=== PATIENT | female | born 1960 | race Caucasian/White ===

== ENCOUNTER 2016-11-05 08:20 | Emergency (ER) | payer MEDICAID ==
--- NOTE | 2016-11-06 07:46 | ER ---
Date of Service: 11/05/2016 SUBJECTIVE: Eunice presents to the emergency room with complaints of chronic back pain. The patient states that she has a history of chronic low back pain and does have a history of degenerative disk disease. She is normally on Ultram 50 mg and normally takes 1 every 4-6 hours as needed for pain. She is currently out of her medication and cannot get in to the clinic to see her primary for the next 2 days. The patient denies any new trauma. No new symptoms. She again states that she is out of her medications and is requesting a refill. PAST MEDICAL HISTORY: Chronic low back pain. MEDICATIONS: 1. Tramadol 50 mg q.4-6 hours. 2. Wellbutrin. 3. Clonazepam. ALLERGIES: Cipro and shellfish. REVIEW OF SYSTEMS: General: Denies any fever or chills. Denies any saddle anesthesia. No paresthesia to her lower extremities. PHYSICAL EXAMINATION: General: This is a 55-year-old female patient, in no acute distress. Skin: Warm, pink, and dry. Musculoskeletal: She does have some point tenderness and muscle spasm to her paraspinal muscles. No gross bony deformity noted to her lumbar spine. Her straight leg raise is negative bilaterally. Patellar reflexes are 2+. ASSESSMENT: Acute on chronic low back pain. PLAN: The patient was given a total of 10 tramadol and was instructed to follow up with her primary care provider if she requires more. Return to the emergency room if she develops any saddle anesthesia, urinary or fecal incontinence, or other worrisome signs or symptoms. All questions were answered. MWK: 11/05/2016 18:25:53 MODL: 11/05/2016 20:45:15 /[id number]
== END 2016-11-05 09:00 | disposition home or self-care (01) ==
LOC: VM.ED 08:20
CPT/HCPCS: 99283

== ENCOUNTER 2017-12-16 06:20 | Emergency (ER) | payer MEDICAID ==
[2017-12-16 06:35] VITALS: BP 131/80
--- NOTE | 2017-12-16 07:22 | EDM.PDOC ---
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 Patient state the pain starts in the lower left back and radiated down to the left ankle. Patient is s/p laminectomy from 6 weeks ago. She states she has been doing very well since the surgery. The surgery was uneventful. Patient states the pain is worse when she sit down. She has tried heat, ice, and advil, but stop taking the advil as it bothers her stomach. Otherwise, no other symptoms. Onset Date: 12/15/17 left low back Pain Score (Numeric/FACES): 9 - Related Data Allergies Allergy/AdvReac Type Severity Reaction Status Date / Time ciprofloxacin [From Cipro] Allergy Vomiting Verified 12/16/17 06:35 shellfish derived Allergy Anaphylactic Verified 12/16/17 06:35 Shock Home Meds: Home Meds ClonazePAM [KlonoPIN] 1 mg PO BID PRN 10/25/16 [History] buPROPion [Wellbutrin] 1 tab PO BID 10/25/16 [History] Hydrocodone/Acetaminophen [Hydrocodon-Acetaminophen 5-325] 1 tab PO Q6HR PRN #5 tablet 12/16/17 [Rx] Past Medical History - Past Health History Medical/Surgical History: Denies Medical/Surgical History Musculoskeletal History: Reports: Back Pain, Chronic Psychiatric History: Reports: Anxiety - Past Surgical History GI Surgical History: Reports: Appendectomy, Cholecystectomy Musculoskeletal Surgical History: Reports: Other (See Below) Other Musculoskeletal Surgeries/Procedures:: Back surgery, double laminectomy 6 weeks ago. Social & Family History - Tobacco Use Smoking Status *Q: Current Every Day Smoker Years of Tobacco use: 15 Packs/Tins Daily: 0.5 - Recreational Drug Use Recreational Drug Use: No ED ROS GENERAL - Review of Systems Review Of Systems: See Below Constitutional: Denies: Fever, Chills, Weakness Respiratory: Denies: Shortness of Breath, Cough Cardiovascular: Denies: Chest Pain, Palpitations GI/Abdominal: Denies: Abdominal Pain, Nausea, Stool Incontinence, Vomiting : Denies: Incontinence Musculoskeletal: Reports: Back Pain, Muscle Pain, Muscle Stiffness Skin: Reports: No Symptoms Neurological: Denies: Numbness, Paresthesia, Tingling ED EXAM,LOWER BACK PAIN/INJURY - Physical Exam Exam: See Below Exam Limited By: No Limitations General Appearance: Alert, No Apparent Distress Respiratory/Chest: No Respiratory Distress, Lungs Clear, Normal Breath Sounds Cardiovascular: Normal Peripheral Pulses, Regular Rate, Rhythm GI/Abdominal: Normal Bowel Sounds, Soft, Non-Tender Back Exam: Muscle Spasm, Paraspinal Tenderness Neurological: Alert, Oriented x 3 Skin Exam: Warm, Dry, Intact, Normal Color Course - Vital Signs Last Recorded V/S: Last Vital Signs Temp 36.1 C 12/16/17 06:20 Pulse 100 12/16/17 06:20 Resp 18 12/16/17 06:20 BP 131/80 12/16/17 06:20 Pulse Ox - Orders/Labs/Meds Orders: Active Orders 24 hr Category Date Time Status Lumbar Spine 2 or 3V [CR] Stat Exams 12/16/17 06:54 Taken Orphenadrine [Norflex] Med 12/16/17 07:00 Active 60 mg IM Q12H Medication Orders Orphenadrine Citrate (Norflex) 60 mg IM Q12H [facility] Last Admin: 12/16/17 07:05 Dose: 60 mg Meds: Medications Generic Name Dose Route Start Last Admin Trade Name Freq PRN Reason Stop Dose Admin Orphenadrine Citrate 60 mg 12/16/17 07:00 12/16/17 07:05 Norflex IM 60 mg Q12H [facility] Administration - Radiology Interpretation Free Text/Narrative:: Lumbar Spine 2-3V: Mild lower lumbar degenerative disc disease See scanned document in EMR Departure - Departure Time of Disposition: 08:02 Disposition: Home, Self-Care 01 Clinical Impression: Acute exacerbation of chronic low back pain - Discharge Information Prescriptions: Hydrocodone/Acetaminophen [Hydrocodon-Acetaminophen 5-325] 1 tab PO Q6HR PRN #5 tablet PRN Reason: Pain (Severe 7-10) Instructions: What You Need to Know About Chronic Back Pain, Back Pain, Adult, [id number], Tramadol tablets Referrals: Heidi Salas PA-C [Primary Care Provider] - Forms: ED Department Discharge Additional Instructions: 1. Stay well hydrated and rest 2. Take pain medication sparingly, this can make you drowsy 3. May alternate Tylenol/Advil as needed 4. Use warm packs to back 5. See your Primary tomorrow in clinic - Problem List Review Problem List Initiated/Reviewed/Updated: Yes - My Orders Last 24 Hours: My Active Orders 12/16/17 06:54 Lumbar Spine 2 or 3V [CR] Stat 12/16/17 07:00 Orphenadrine [Norflex] 60 mg IM Q12H - Assessment/Plan Last 24 Hours: My Active Orders 12/16/17 06:54 Lumbar Spine 2 or 3V [CR] Stat 12/16/17 07:00 Orphenadrine [Norflex] 60 mg IM Q12H Assessment:: Acute on Chronic left lower back pain
== END 2017-12-16 08:30 | disposition home or self-care (01) ==
LOC: VM.ED 06:20
DX: M54.5 Low back pain (principal); G89.29 Other chronic pain; F17.210 Nicotine dependence, cigarettes, uncomplicated; Z88.1 Allergy status to other antibiotic agents; Z91.013 Allergy to seafood
CPT/HCPCS: 72100; 96372; 99283; J2360

== ENCOUNTER 2018-02-15 22:01 | Observation (INO) | payer MEDICAID ==
[2018-02-15] MEDS ORDERED: Sodium Chloride 0.9% 1,000 ML IV ONE (22:53)
[2018-02-15 23:42] LABS: CHLORIDE,CL 101 mmol/L (98-107); SODIUM,NA 136 mmol/L (136-145)
[2018-02-15 23:44] LABS: ANION GAP 10.8 mmol/L (10-20)
[2018-02-16] MEDS ORDERED: cloNIDine 0.1 MG Tab PO ONE
[2018-02-16] MEDS ORDERED: cefTRIAXone 2 GM Vial IVPUSH ONE
[2018-02-16] MEDS ORDERED: Sodium Chloride 0.9% 1,000 ML IV ONE (01:08)
--- NOTE | 2018-02-16 01:45 | EDM.PDOC ---
ED HPI GENERAL MEDICAL PROBLEM - General Chief Complaint: General Stated Complaint: ? seizure Time Seen by Provider: 02/15/18 22:21 Source of Information: Reports: Patient, EMS, Family History Limitations: Reports: No Limitations - History of Present Illness INITIAL COMMENTS - FREE TEXT/NARRATIVE: Pt. presents to ER via EMS. Pt. was watching TV with her significant other when she had what appeared to be a grand mal seizure lasting approx. 2 min. Boyfriend states that pt. was rigid with shaking of all 4 extremities. Pt. was apparently somnolent consistent with postictal state for several minutes after the even. She was not incontinent. No oral trauma reported. Pt. has no recollection of the event, and offered no complaints before the even of after. She is currently 4 months post op following a failed laminectomy and is being seen by neurosurgery for possible spinal fusion. She states that she has chronic back pain and is taking tramadol. She denies any fever, chills, or neck pain. Denies any nausea or vomiting. Location: Reports: Generalized Associated Symptoms: Reports: Seizure Back Pain Score (Numeric/FACES): 8 - Related Data Allergies Allergy/AdvReac Type Severity Reaction Status Date / Time shellfish derived Allergy Severe Anaphylactic Verified 02/15/18 22:02 Shock ciprofloxacin [From Cipro] AdvReac Vomiting Verified 02/15/18 22:02 Home Meds: Home Meds buPROPion [Wellbutrin] 1 tab PO BID 10/25/16 [History] Hydrocodone/Acetaminophen [Hydrocodon-Acetaminophen 5-325] 1 tab PO Q6HR PRN #5 tablet 12/16/17 [Rx] Past Medical History - Past Health History Medical/Surgical History: Denies Medical/Surgical History [employer] History: Reports: Ectopic Musculoskeletal History: Reports: Back Pain, Chronic Psychiatric History: Reports: Anxiety, Depression - Infectious Disease History Infectious Disease History: Reports: Chicken Pox - Past Surgical History Head Surgeries/Procedures: Reports: None GI Surgical History: Reports: Appendectomy, Cholecystectomy Female Surgical History: Reports: Oophorectomy Neurological Surgical History: Reports: Discectomy, Laminectomy Other Neurological Surgeries/Procedures: Double laminectomy November 2017 Social & Family History - Family History Cardiac: Reports: [place] Neurological: Reports: Dementia, Neuropathy, Diabetic Psychiatric: Reports: ADHD Endocrine/Metabolic: Reports: Diabetes, type II Hematologic: Reports: Anemia Oncologic: Reports: Skin - Tobacco Use Smoking Status *Q: Current Every Day Smoker Years of Tobacco use: 20 Packs/Tins Daily: 0.2 Tobacco Use Comment: Patient has access to quitline. Does not want more information today. ED ROS GENERAL - Review of Systems Review Of Systems: See Below Constitutional: Reports: No Symptoms. Denies: Fever, Chills, Malaise, Weakness , Fatigue, Diaphoresis, Decreased Appetite, Weight Loss HEENT: Reports: No Symptoms Respiratory: Reports: No Symptoms Cardiovascular: Reports: No Symptoms Endocrine: Reports: No Symptoms GI/Abdominal: Reports: No Symptoms : Reports: No Symptoms Musculoskeletal: Reports: No Symptoms Skin: Reports: No Symptoms Neurological: Reports: Confusion (during postictal period), Seizure Psychiatric: Reports: No Symptoms Hematologic/Lymphatic: Reports: No Symptoms Immunologic: Reports: No Symptoms ED EXAM, GENERAL - Physical Exam Exam: See Below Exam Limited By: No Limitations General Appearance: Alert, WD/WN, No Apparent Distress Eye Exam: Bilateral Eye: EOMI, Normal Fundi, Normal Inspection, PERRL Ears: Normal External Exam, Normal Canal, Hearing Grossly Normal, Normal TMs Ear Exam: Bilateral Ear: Auricle Normal, Canal Normal, TM normal Nose: Normal Inspection, Normal Mucosa, No Blood Throat/Mouth: Normal Inspection, Normal Lips, Normal Teeth, Normal Gums, Normal Oropharynx, Normal Voice, No Airway Compromise Head: Atraumatic, Normocephalic Neck: Normal Inspection, Supple, Non-Tender, Full Range of Motion Respiratory/Chest: No Respiratory Distress, Lungs Clear, Normal Breath Sounds, No Accessory Muscle Use, Chest Non-Tender Cardiovascular: Normal Peripheral Pulses, Regular Rate, Rhythm, No Edema, No Gallop, No JVD, No Murmur, No Rub Peripheral Pulses: 4+: Radial (L), Radial (R) GI/Abdominal: Normal Bowel Sounds, Soft, Non-Tender, No Organomegaly, No Distention, No Abnormal Bruit, No Mass (Female) Exam: Deferred Rectal (Female) Exam: Deferred Back Exam: Normal Inspection, Full Range of Motion, NT Extremities: Normal Inspection, Normal Range of Motion, Non-Tender, Normal Capillary Refill, No Pedal Edema Neurological: Alert, Oriented, CN II-XII Intact, Normal Cognition, Confused, Disoriented (initially somewhat confused and slow to respond which improved over time.) Psychiatric: Normal Affect, Normal Mood Skin Exam: Warm, Dry, Intact, Normal Color, No Rash Lymphatic: No Adenopathy EKG INTERPRETATION Rhythm: NSR Stout: Normal P-Wave: Present QRS: Normal ST-T: Normal QT: Normal Course - Vital Signs Last Recorded V/S: Last Vital Signs Temp 36.4 C 02/16/18 00:44 Pulse 88 02/16/18 00:44 Resp 17 02/16/18 00:44 BP 131/99 H 02/16/18 00:44 Pulse Ox 97 02/16/18 00:44 - Orders/Labs/Meds Orders: Active Orders 24 hr Category Date Time Status Patient Status [ADT] Routine ADT 02/15/18 23:56 Active EKG Documentation Completion [RC] STAT Care 02/15/18 22:38 Inactive Head wo Cont [CT] Stat Exams 02/15/18 22:34 Taken CULTURE BLOOD [BC] Stat Lab 02/15/18 23:00 Received CULTURE BLOOD [BC] Stat Lab 02/15/18 23:00 Received DRUG SCREEN, URINE [URCHEM] Stat Lab 02/15/18 23:15 Ordered Blood Culture x2 Reflex Set [OM.PC] Stat Oth 02/15/18 22:37 Ordered Medication Orders Sodium Chloride (Normal Saline) 1,000 mls @ 125 mls/hr IV ONETIME ONE Stop: 02/16/18 09:07 Labs: Laboratory Tests 02/15/18 02/15/18 02/15/18 Range/Units 23:00 23:00 23:00 WBC 7.4 (4.0-10.0) x10^3/uL RBC 4.40 (4.00-5.50) x10^6/uL Hgb 13.5 (12.0-16.0) g/dL Hct 40.8 (33.0-47.0) % MCV 92.7 (78.0-93.0) fL MCH 30.7 (26.0-32.0) pg MCHC 33.1 (32.0-36.0) g/dL RDW Coeff of Felisha 13.4 (10.0-15.0) % Plt Count 161 (130-400) x10^3/uL Neut % (Auto) 67.2 (50.0-80.0) % Lymph % (Auto) 19.1 L (25.0-50.0) % [place] % (Auto) 11.1 H (2.0-11.0) % Eos % (Auto) 2.3 (0.0-4.0) % Baso % (Auto) 0.3 (0.2-1.2) % PT 9.7 (9.6-11.4) SEC INR 0.9 L (2.0-3.5) Sodium 136 (136-145) mmol/L Potassium 3.8 (3.5-5.1) mmol/L Chloride 101 (98-107) mmol/L Carbon Dioxide 28 (21-32) mmol/L Anion Gap 10.8 (10-20) mmol/L BUN 20 H (7-18) mg/dL Creatinine 0.9 (0.55-1.02) mg/dL Est Cr Clr Drug Dosing TNP Estimated GFR (MDRD) > 60 Glucose 106 (74-106) mg/dL Lactic Acid (0.4-2.0) mmol/L Calcium 8.9 (8.5-10.1) mg/dL Corrected Calcium 9.46 (8.5-10.1) mg/dL Phosphorus 3.0 (2.6-4.7) mg/dL Magnesium 2.0 (1.8-2.4) mg/dL Total Bilirubin 0.3 (0.2-1.0) mg/dL AST 24 (15-37) U/L ALT 26 (14-59) U/L Alkaline Phosphatase 88 (46-116) U/L Troponin I < 0.017 (<=0.056) ng/mL C-Reactive Protein 1.8 H (<=0.9) mg/dL Total Protein 6.5 (6.4-8.2) g/dL Albumin 3.3 L (3.4-5.0) g/dL Globulin 3.2 Albumin/Globulin Ratio 1.03 Urine Color (YELLOW) Urine Appearance (CLEAR) Urine pH (5.0-8.0) Ur Specific [place] Urine Protein (NEGATIVE) mg/dL Urine Glucose (UA) (NEGATIVE) mg/dL Urine Ketones (NEGATIVE) mg/dL Urine Occult Blood (NEGATIVE) Urine Nitrite (NEGATIVE) Urine Bilirubin (NEGATIVE) Urine Urobilinogen (0.2) EU/dL Ur Leukocyte Esterase (NEGATIVE) Urine RBC (NOT SEEN) /HPF Urine WBC (NOT SEEN) /HPF Ur Squamous Epith Cells (NEGATIVE) /HPF Urine Bacteria (NEGATIVE) /HPF Urine Mucus (NEGATIVE) /LPF Urine Opiates Screen (NEGATIVE) Ur Buprenorphine Scrn (NEGATIVE) Ur Oxycodone Screen (NEGATIVE) Urine Methadone Screen (NEGATIVE) Ur Barbiturates Screen (NEGATIVE) Ur Tricyclics Screen (NEGATIVE) Ur Amphetamine Screen (NEGATIVE) U Methamphetamines Scrn (NEGATIVE) Urine MDMA Screen (NEGATIVE) U Benzodiazepines Scrn (NEGATIVE) U Cocaine Metab Screen (NEGATIVE) U Marijuana (THC) Screen (NEGATIVE) Ethyl Alcohol < 3 (0-3) mg/dL 02/15/18 02/15/18 02/15/18 Range/Units 23:00 23:15 23:15 WBC (4.0-10.0) x10^3/uL RBC (4.00-5.50) x10^6/uL Hgb (12.0-16.0) g/dL Hct (33.0-47.0) % MCV (78.0-93.0) fL MCH (26.0-32.0) pg MCHC (32.0-36.0) g/dL RDW Coeff of Felisha (10.0-15.0) % Plt Count (130-400) x10^3/uL Neut % (Auto) (50.0-80.0) % Lymph % (Auto) (25.0-50.0) % [place] % (Auto) (2.0-11.0) % Eos % (Auto) (0.0-4.0) % Baso % (Auto) (0.2-1.2) % PT (9.6-11.4) SEC INR (2.0-3.5) Sodium (136-145) mmol/L Potassium (3.5-5.1) mmol/L Chloride (98-107) mmol/L Carbon Dioxide (21-32) mmol/L Anion Gap (10-20) mmol/L BUN (7-18) mg/dL Creatinine (0.55-1.02) mg/dL Est Cr Clr Drug Dosing Estimated GFR (MDRD) Glucose (74-106) mg/dL Lactic Acid 1.5 (0.4-2.0) mmol/L Calcium (8.5-10.1) mg/dL Corrected Calcium (8.5-10.1) mg/dL Phosphorus (2.6-4.7) mg/dL Magnesium (1.8-2.4) mg/dL Total Bilirubin (0.2-1.0) mg/dL AST (15-37) U/L ALT (14-59) U/L Alkaline Phosphatase (46-116) U/L Troponin I (<=0.056) ng/mL C-Reactive Protein (<=0.9) mg/dL Total Protein (6.4-8.2) g/dL Albumin (3.4-5.0) g/dL Globulin Albumin/Globulin Ratio Urine Color Dark yellow H (YELLOW) Urine Appearance Turbid H (CLEAR) Urine pH 7.0 (5.0-8.0) Ur Specific [place] 1.025 Urine Protein Negative (NEGATIVE) mg/dL Urine Glucose (UA) Negative (NEGATIVE) mg/dL Urine Ketones Negative (NEGATIVE) mg/dL Urine Occult Blood Trace-intact H (NEGATIVE) Urine Nitrite Positive H (NEGATIVE) Urine Bilirubin Negative (NEGATIVE) Urine Urobilinogen 0.2 (0.2) EU/dL Ur Leukocyte Esterase Trace H (NEGATIVE) Urine RBC 0-5 (NOT SEEN) /HPF Urine WBC 5-10 H (NOT SEEN) /HPF Ur Squamous Epith Cells Moderate H (NEGATIVE) /HPF Urine Bacteria Many H (NEGATIVE) /HPF Urine Mucus Moderate H (NEGATIVE) /LPF Urine Opiates Screen Negative (NEGATIVE) Ur Buprenorphine Scrn Negative (NEGATIVE) Ur Oxycodone Screen Negative (NEGATIVE) Urine Methadone Screen Negative (NEGATIVE) Ur Barbiturates Screen Negative (NEGATIVE) Ur Tricyclics Screen Negative (NEGATIVE) Ur Amphetamine Screen Negative (NEGATIVE) U Methamphetamines Scrn Negative (NEGATIVE) Urine MDMA Screen Negative (NEGATIVE) U Benzodiazepines Scrn Negative (NEGATIVE) U Cocaine Metab Screen Negative (NEGATIVE) U Marijuana (THC) Screen Negative (NEGATIVE) Ethyl Alcohol (0-3) mg/dL Meds: Medications Generic Name Dose Route Start Last Admin Trade Name Freq PRN Reason Stop Dose Admin Sodium Chloride 1,000 mls @ 125 mls/hr 02/16/18 01:08 Normal Saline IV 02/16/18 09:07 ONETIME ONE Discontinued Medications Generic Name Dose Route Start Last Admin Trade Name Lauryn PRN Reason Stop Dose Admin Ceftriaxone Sodium 2 gm 02/16/18 00:00 02/16/18 00:12 Rocephin IVPUSH 02/16/18 00:01 2 gm STAT ONE Administration Clonidine HCl 0.1 mg 02/16/18 00:00 02/16/18 00:12 Catapres PO 02/16/18 00:01 0.1 mg ONETIME ONE Administration Sodium Chloride 1,000 mls @ 1,000 mls/hr 02/15/18 22:53 02/15/18 23:09 Normal Saline IV 02/15/18 23:52 1,000 mls/hr .BOLUS ONE Administration - Radiology Interpretation Free Text/Narrative:: CT brain is negative for acute pathology - Re-Assessments/Exams Free Text/Narrative Re-Assessment/Exam: Pt. was given 1 liter of NS in ER. Heart rate decreased from approx. 130 to 90 range. She continued to by hypertensive. She was given clonidine 0.1mg PO. She was given rocephin IV for her UTI. Departure - Departure Time of Disposition: 00:40 Disposition: Refer to Observation Clinical Impression: Seizures, UTI (urinary tract infection), Hypertension, Dehydration - Discharge Information - My Orders Last 24 Hours: My Active Orders 02/15/18 22:34 Head wo Cont [CT] Stat 02/15/18 22:37 Blood Culture x2 Reflex Set [OM.PC] Stat 02/15/18 22:38 EKG Documentation Completion [RC] STAT 02/15/18 23:00 CULTURE BLOOD [BC] Stat CULTURE BLOOD [BC] Stat 02/15/18 23:15 DRUG SCREEN, URINE [URCHEM] Stat 02/15/18 23:56 Patient Status [ADT] Routine - Assessment/Plan Last 24 Hours: My Active Orders 02/15/18 22:34 Head wo Cont [CT] Stat 02/15/18 22:37 Blood Culture x2 Reflex Set [OM.PC] Stat 02/15/18 22:38 EKG Documentation Completion [RC] STAT 02/15/18 23:00 CULTURE BLOOD [BC] Stat CULTURE BLOOD [BC] Stat 02/15/18 23:15 DRUG SCREEN, URINE [URCHEM] Stat 02/15/18 23:56 Patient Status [ADT] Routine Plan: Admit observation. Code status: 1. Will continue normal saline at 125ml/hr. Rocephin 1gm QD. seizure precautions. Will set pt. of for MRI and EEG tomorrow. She was not given any seizure medication at this time, as it was a solitary event.
[2018-02-16 08:04] LABS: CHLORIDE,CL 107 mmol/L (98-107); SODIUM,NA 140 mmol/L (136-145)
[2018-02-16 08:05] LABS: ANION GAP 10.9 mmol/L (10-20)
[2018-02-16 10:49] VITALS: BP 127/78
--- NOTE | 2018-02-16 11:14 | PCM.DCSUM1 ---
Discharge Summary - Hospital Course Free Text/Narrative:: Pt. was admitted observation for new onset seizure activity, dehydration, and UTI. She did will overnight and exhibited no other signs of seizure activity. She was stable overnight. her blood pressure was treated with a single dose of clonidine 0.1mg and has improved. She offers no complaints at time of discharge. She will undergo an MRI later this morning and is set to see KARMEN Felipe this afternoon. I did discuss the patient with her. She is working on referrals for an EEG and to see neurology. Diagnosis: Stroke: No Modified [place] Scale: No Symptoms at All Modified [place] Scale Score: 0 - Discharge Data Discharge Date: 02/16/18 Discharge Disposition: Home, Self-Care 01 Condition: Good - Discharge Diagnosis/Problem(s) (1) Seizures SNOMED Code(s): 95728616 ICD Code: R56.9 - UNSPECIFIED CONVULSIONS Status: Acute Current Visit: Yes (2) UTI (urinary tract infection) SNOMED Code(s): 49249094 ICD Code: N39.0 - URINARY TRACT INFECTION, SITE NOT SPECIFIED Status: Acute Current Visit: Yes Qualifiers: Urinary tract infection type: acute cystitis - Discharge Plan Home Medications: Home Meds buPROPion [Wellbutrin] 1 tab PO BID 10/25/16 [History] Hydrocodone/Acetaminophen [Hydrocodon-Acetaminophen 5-325] 1 tab PO Q6HR PRN #5 tablet 12/16/17 [Rx] Forms: ED Department Discharge Referrals: Heidi Salas PA-C [Primary Care Provider] - 02/19/18 2:00 pm (You have a follow up appt. with Heidi Salas on February 19, 2018 at 2:00) - General Info Functional Status: Reports: Pain Controlled - Review of Systems General: Reports: No Symptoms HEENT: Reports: No Symptoms Pulmonary: Reports: No Symptoms Cardiovascular: Reports: No Symptoms Gastrointestinal: Reports: No Symptoms Genitourinary: Reports: No Symptoms Musculoskeletal: Reports: No Symptoms Skin: Reports: No Symptoms Neurological: Reports: No Symptoms Psychiatric: Reports: No Symptoms - Patient Data Vitals - Most Recent: Last Vital Signs Temp 36.9 C 02/16/18 10:00 Pulse 80 02/16/18 10:00 Resp 16 02/16/18 10:00 BP 127/78 02/16/18 10:00 Pulse Ox 98 02/16/18 10:00 Weight - Most Recent: 57.266 kg I&O - Last 24 hours: Intake & Output 02/15/18 02/16/18 02/16/18 22:59 06:59 14:59 Intake Total 647 870 Output Total 500 600 Balance 147 270 Lab Results - Last 24 hrs: Laboratory Results - last 24 hr 02/15/18 02/15/18 02/15/18 Range/Units 23:00 23:00 23:00 WBC 7.4 (4.0-10.0) x10^3/uL RBC 4.40 (4.00-5.50) x10^6/uL Hgb 13.5 (12.0-16.0) g/dL Hct 40.8 (33.0-47.0) % MCV 92.7 (78.0-93.0) fL MCH 30.7 (26.0-32.0) pg MCHC 33.1 (32.0-36.0) g/dL RDW Coeff of Felisha 13.4 (10.0-15.0) % Plt Count 161 (130-400) x10^3/uL Neut % (Auto) 67.2 (50.0-80.0) % Lymph % (Auto) 19.1 L (25.0-50.0) % [place] % (Auto) 11.1 H (2.0-11.0) % Eos % (Auto) 2.3 (0.0-4.0) % Baso % (Auto) 0.3 (0.2-1.2) % PT 9.7 (9.6-11.4) SEC INR 0.9 L (2.0-3.5) Sodium 136 (136-145) mmol/L Potassium 3.8 (3.5-5.1) mmol/L Chloride 101 (98-107) mmol/L Carbon Dioxide 28 (21-32) mmol/L Anion Gap 10.8 (10-20) mmol/L BUN 20 H (7-18) mg/dL Creatinine 0.9 (0.55-1.02) mg/dL Est Cr Clr Drug Dosing TNP Estimated GFR (MDRD) > 60 Glucose 106 (74-106) mg/dL Lactic Acid (0.4-2.0) mmol/L Calcium 8.9 (8.5-10.1) mg/dL Corrected Calcium 9.46 (8.5-10.1) mg/dL Phosphorus 3.0 (2.6-4.7) mg/dL Magnesium 2.0 (1.8-2.4) mg/dL Total Bilirubin 0.3 (0.2-1.0) mg/dL AST 24 (15-37) U/L ALT 26 (14-59) U/L Alkaline Phosphatase 88 (46-116) U/L Troponin I < 0.017 (<=0.056) ng/mL C-Reactive Protein 1.8 H (<=0.9) mg/dL Total Protein 6.5 (6.4-8.2) g/dL Albumin 3.3 L (3.4-5.0) g/dL Globulin 3.2 Albumin/Globulin Ratio 1.03 Urine Color (YELLOW) Urine Appearance (CLEAR) Urine pH (5.0-8.0) Ur Specific [place] Urine Protein (NEGATIVE) mg/dL Urine Glucose (UA) (NEGATIVE) mg/dL Urine Ketones (NEGATIVE) mg/dL Urine Occult Blood (NEGATIVE) Urine Nitrite (NEGATIVE) Urine Bilirubin (NEGATIVE) Urine Urobilinogen (0.2) EU/dL Ur Leukocyte Esterase (NEGATIVE) Urine RBC (NOT SEEN) /HPF Urine WBC (NOT SEEN) /HPF Ur Squamous Epith Cells (NEGATIVE) /HPF Urine Bacteria (NEGATIVE) /HPF Urine Mucus (NEGATIVE) /LPF Urine Opiates Screen (NEGATIVE) Ur Buprenorphine Scrn (NEGATIVE) Ur Oxycodone Screen (NEGATIVE) Urine Methadone Screen (NEGATIVE) Ur Barbiturates Screen (NEGATIVE) Ur Tricyclics Screen (NEGATIVE) Ur Amphetamine Screen (NEGATIVE) U Methamphetamines Scrn (NEGATIVE) Urine MDMA Screen (NEGATIVE) U Benzodiazepines Scrn (NEGATIVE) U Cocaine Metab Screen (NEGATIVE) U Marijuana (THC) Screen (NEGATIVE) Ethyl Alcohol < 3 (0-3) mg/dL 02/15/18 02/15/18 02/15/18 Range/Units 23:00 23:15 23:15 WBC (4.0-10.0) x10^3/uL RBC (4.00-5.50) x10^6/uL Hgb (12.0-16.0) g/dL Hct (33.0-47.0) % MCV (78.0-93.0) fL MCH (26.0-32.0) pg MCHC (32.0-36.0) g/dL RDW Coeff of Felisha (10.0-15.0) % Plt Count (130-400) x10^3/uL Neut % (Auto) (50.0-80.0) % Lymph % (Auto) (25.0-50.0) % [place] % (Auto) (2.0-11.0) % Eos % (Auto) (0.0-4.0) % Baso % (Auto) (0.2-1.2) % PT (9.6-11.4) SEC INR (2.0-3.5) Sodium (136-145) mmol/L Potassium (3.5-5.1) mmol/L Chloride (98-107) mmol/L Carbon Dioxide (21-32) mmol/L Anion Gap (10-20) mmol/L BUN (7-18) mg/dL Creatinine (0.55-1.02) mg/dL Est Cr Clr Drug Dosing Estimated GFR (MDRD) Glucose (74-106) mg/dL Lactic Acid 1.5 (0.4-2.0) mmol/L Calcium (8.5-10.1) mg/dL Corrected Calcium (8.5-10.1) mg/dL Phosphorus (2.6-4.7) mg/dL Magnesium (1.8-2.4) mg/dL Total Bilirubin (0.2-1.0) mg/dL AST (15-37) U/L ALT (14-59) U/L Alkaline Phosphatase (46-116) U/L Troponin I (<=0.056) ng/mL C-Reactive Protein (<=0.9) mg/dL Total Protein (6.4-8.2) g/dL Albumin (3.4-5.0) g/dL Globulin Albumin/Globulin Ratio Urine Color Dark yellow H (YELLOW) Urine Appearance Turbid H (CLEAR) Urine pH 7.0 (5.0-8.0) Ur Specific [place] 1.025 Urine Protein Negative (NEGATIVE) mg/dL Urine Glucose (UA) Negative (NEGATIVE) mg/dL Urine Ketones Negative (NEGATIVE) mg/dL Urine Occult Blood Trace-intact H (NEGATIVE) Urine Nitrite Positive H (NEGATIVE) Urine Bilirubin Negative (NEGATIVE) Urine Urobilinogen 0.2 (0.2) EU/dL Ur Leukocyte Esterase Trace H (NEGATIVE) Urine RBC 0-5 (NOT SEEN) /HPF Urine WBC 5-10 H (NOT SEEN) /HPF Ur Squamous Epith Cells Moderate H (NEGATIVE) /HPF Urine Bacteria Many H (NEGATIVE) /HPF Urine Mucus Moderate H (NEGATIVE) /LPF Urine Opiates Screen Negative (NEGATIVE) Ur Buprenorphine Scrn Negative (NEGATIVE) Ur Oxycodone Screen Negative (NEGATIVE) Urine Methadone Screen Negative (NEGATIVE) Ur Barbiturates Screen Negative (NEGATIVE) Ur Tricyclics Screen Negative (NEGATIVE) Ur Amphetamine Screen Negative (NEGATIVE) U Methamphetamines Scrn Negative (NEGATIVE) Urine MDMA Screen Negative (NEGATIVE) U Benzodiazepines Scrn Negative (NEGATIVE) U Cocaine Metab Screen Negative (NEGATIVE) U Marijuana (THC) Screen Negative (NEGATIVE) Ethyl Alcohol (0-3) mg/dL 02/16/18 02/16/18 02/16/18 Range/Units 07:11 07:11 07:11 WBC 5.0 (4.0-10.0) x10^3/uL RBC 3.82 L (4.00-5.50) x10^6/uL Hgb 11.5 L D (12.0-16.0) g/dL Hct 36.0 (33.0-47.0) % MCV 94.2 H (78.0-93.0) fL MCH 30.1 (26.0-32.0) pg MCHC 31.9 L (32.0-36.0) g/dL RDW Coeff of Felisha 13.5 (10.0-15.0) % Plt Count 136 (130-400) x10^3/uL Neut % (Auto) 63.5 (50.0-80.0) % Lymph % (Auto) 23.5 L (25.0-50.0) % [place] % (Auto) 10.6 (2.0-11.0) % Eos % (Auto) 2.2 (0.0-4.0) % Baso % (Auto) 0.2 (0.2-1.2) % PT (9.6-11.4) SEC INR (2.0-3.5) Sodium 140 (136-145) mmol/L Potassium 3.9 (3.5-5.1) mmol/L Chloride 107 (98-107) mmol/L Carbon Dioxide 26 (21-32) mmol/L Anion Gap 10.9 (10-20) mmol/L BUN 13 (7-18) mg/dL Creatinine 0.7 (0.55-1.02) mg/dL Est Cr Clr Drug Dosing 71.82 Estimated GFR (MDRD) > 60 Glucose 84 (74-106) mg/dL Lactic Acid 0.6 (0.4-2.0) mmol/L Calcium 7.9 L (8.5-10.1) mg/dL Corrected Calcium 8.86 (8.5-10.1) mg/dL Phosphorus (2.6-4.7) mg/dL Magnesium (1.8-2.4) mg/dL Total Bilirubin 0.3 (0.2-1.0) mg/dL AST 23 (15-37) U/L ALT 20 (14-59) U/L Alkaline Phosphatase 72 (46-116) U/L Troponin I < 0.017 (<=0.056) ng/mL C-Reactive Protein (<=0.9) mg/dL Total Protein 5.6 L (6.4-8.2) g/dL Albumin 2.8 L (3.4-5.0) g/dL Globulin 2.8 Albumin/Globulin Ratio 1.00 Urine Color (YELLOW) Urine Appearance (CLEAR) Urine pH (5.0-8.0) Ur Specific [place] Urine Protein (NEGATIVE) mg/dL Urine Glucose (UA) (NEGATIVE) mg/dL Urine Ketones (NEGATIVE) mg/dL Urine Occult Blood (NEGATIVE) Urine Nitrite (NEGATIVE) Urine Bilirubin (NEGATIVE) Urine Urobilinogen (0.2) EU/dL Ur Leukocyte Esterase (NEGATIVE) Urine RBC (NOT SEEN) /HPF Urine WBC (NOT SEEN) /HPF Ur Squamous Epith Cells (NEGATIVE) /HPF Urine Bacteria (NEGATIVE) /HPF Urine Mucus (NEGATIVE) /LPF Urine Opiates Screen (NEGATIVE) Ur Buprenorphine Scrn (NEGATIVE) Ur Oxycodone Screen (NEGATIVE) Urine Methadone Screen (NEGATIVE) Ur Barbiturates Screen (NEGATIVE) Ur Tricyclics Screen (NEGATIVE) Ur Amphetamine Screen (NEGATIVE) U Methamphetamines Scrn (NEGATIVE) Urine MDMA Screen (NEGATIVE) U Benzodiazepines Scrn (NEGATIVE) U Cocaine Metab Screen (NEGATIVE) U Marijuana (THC) Screen (NEGATIVE) Ethyl Alcohol (0-3) mg/dL Med Orders - Current: Current Medications Ceftriaxone Sodium (Rocephin) 1 gm IVPUSH DAILY@1999 BRODIE Discontinued Medications Ceftriaxone Sodium (Rocephin) 2 gm IVPUSH STAT ONE Stop: 02/16/18 00:01 Last Admin: 02/16/18 00:12 Dose: 2 gm Clonidine HCl (Catapres) 0.1 mg PO ONETIME ONE Stop: 02/16/18 00:01 Last Admin: 02/16/18 00:12 Dose: 0.1 mg Sodium Chloride (Normal Saline) 1,000 mls @ 1,000 mls/hr IV .BOLUS ONE Stop: 02/15/18 23:52 Last Admin: 02/15/18 23:09 Dose: 1,000 mls/hr Sodium Chloride (Normal Saline) 1,000 mls @ 125 mls/hr IV ONETIME ONE Stop: 02/16/18 09:07 Last Admin: 02/16/18 01:53 Dose: 125 mls/hr - Exam General: Reports: Alert, Oriented HEENT: Reports: Pupils Equal, Pupils Reactive, EOMI, Mucous Membr. Moist/[place]: Reports: Supple Lungs: Reports: Clear to Auscultation, Normal Respiratory Effort Cardiovascular: Reports: Regular Rate, Regular Rhythm GI/Abdominal Exam: Normal Bowel Sounds, Soft, Non-Tender, No Organomegaly, No Distention, No Abnormal Bruit, No Mass, Pelvis Stable (Female) Exam: Deferred Rectal (Female) Exam: Deferred Back Exam: Reports: Normal Inspection, Full Range of Motion Extremities: Normal Inspection, Normal Range of Motion, Non-Tender, No Pedal Edema, Normal Capillary Refill Skin: Reports: Warm, Dry, Intact Wound/Incisions: Reports: Healing Well Neurological: Reports: No New Focal Deficit Psy/Mental Status: Reports: Alert, Normal Affect, Normal Mood
[2018-02-16] MEDS ORDERED: cefTRIAXone 1 GM Vial IVPUSH SCH (20:00)
== END 2018-02-16 12:30 | disposition home or self-care (01) ==
LOC: VM.ED 22:01 → VM.MS 02-16 00:02
PROVIDERS: ADMIT Physician Assistant; ATTEND Physician Assistant
DX: R56.9 Unspecified convulsions (principal); N30.00 Acute cystitis without hematuria; E86.0 Dehydration; E11.40 Type 2 diabetes mellitus with diabetic neuropathy, unspecified; I10 Essential (primary) hypertension; F17.200 Nicotine dependence, unspecified, uncomplicated; F41.9 Anxiety disorder, unspecified; F32.9 Major depressive disorder, single episode, unspecified; Z88.1 Allergy status to other antibiotic agents; Z91.013 Allergy to seafood
CPT/HCPCS: 36415; 70450; 80053; 80305; 81001; 83605; 83735; 84100; 84484; 85025; 85610; 86140; 87040; 93005; 96361; 96374; 99285; G0480; J0696; J7030; A9270-GY

== ENCOUNTER 2019-03-29 22:10 | Emergency (ER) | payer MEDICAID ==
--- NOTE | 2019-03-29 22:57 | EDM.PDOCBH ---
ED HPI GENERAL MEDICAL PROBLEM - General Chief Complaint: Behavioral/Psych Stated Complaint: Possible Overdose Time Seen by Provider: 03/29/19 22:10 Source of Information: Reports: Patient, EMS Notes Reviewed, Old Records, Police , RN, RN Notes Reviewed History Limitations: Reports: No Limitations - History of Present Illness INITIAL COMMENTS - FREE TEXT/NARRATIVE: Patient is brought to the ED via EMS for attempted suicide. EMS was called to patients residence by the patient. Patient stated to EMS crew "I want to kill myself." Patient brought to the ED for further evaluation. According to EMS crew, patient may have had a witnessed seizure enroute. Patient was not given any medications. Upon arrival, patient was verbal and conversive. She did states she took Lexapro and Wellbutrin "because I want to kill myself." Patient has a long standing history of psychiatric disorders. 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 Patient appears to be a poor historian as she refuses to answer questions. Patient denies any pain upon arrival. 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 - Related Data Allergies Allergy/AdvReac Type Severity Reaction Status Date / Time shellfish derived Allergy Severe Anaphylactic Verified 03/30/19 00:16 Shock ciprofloxacin [From Cipro] AdvReac Vomiting Verified 03/30/19 00:16 Home Meds: Home Meds Naproxen 500 mg PO BID 06/03/18 [History] Triamcinolone Acetonide [Kenalog 0.1% Crm] 1 applic TOP BID 06/03/18 [History] atoMOXetine HCl [Strattera] 25 mg PO QAM 06/03/18 [History] tiZANidine HCl [Tizanidine HCl] 2 mg PO TID 06/03/18 [History] traMADol [Ultram] 50 mg PO TID PRN 30 Days #90 tablet 06/03/18 [Rx] Gabapentin [Neurontin] 200 mg PO TID 30 Days #180 capsule 06/10/18 [Rx] Past Medical History - Past Health History Medical/Surgical History: Denies Medical/Surgical History 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 Musculoskeletal History: Reports: Back Pain, Chronic Neurological History: Reports: Seizure Psychiatric History: Reports: Anxiety, Depression - Infectious Disease History Infectious Disease History: Reports: Chicken Pox - Past Surgical History Head Surgeries/Procedures: Reports: None HEENT Surgical History: Reports: Oral Surgery, Other (See Below) Other HEENT Surgeries/Procedures: jaw sx Cardiovascular Surgical History: Reports: None GI Surgical History: Reports: Appendectomy, Cholecystectomy Female Surgical History: Reports: Oophorectomy Neurological Surgical History: Reports: Discectomy, Laminectomy Other Neurological Surgeries/Procedures: Double laminectomy November 2017 Social & Family History - Family History Cardiac: Reports: [place] Neurological: Reports: Dementia, Neuropathy, Diabetic Psychiatric: Reports: ADHD Endocrine/Metabolic: Reports: Diabetes, type II Hematologic: Reports: Anemia Oncologic: Reports: Skin - Caffeine Use Caffeine Use: Reports: None ED ROS GENERAL - Review of Systems Review Of Systems: ROS reveals no pertinent complaints other than HPI. ED EXAM, BEHAVIORAL HEALTH - Physical Exam Exam: See Below Exam Limited By: No Limitations General Appearance: Alert, No Apparent Distress Eye Exam: Bilateral Eye: PERRL Head: Atraumatic, Normocephalic Neck: Supple Respiratory/Chest: No Respiratory Distress, Lungs Clear, Normal Breath Sounds Cardiovascular: Regular Rate, Rhythm, No Edema, Tachycardia GI/Abdominal: Normal Bowel Sounds, Soft, Non-Tender Extremities: Normal Inspection Neurological: Alert, Oriented x 3, Other ([place] appears to be having what looks like seizure activity, but is conversive and able to answer questions during abnormal limb movements) Psychiatric: Flat Affect, Restless, Inattentive, Poor Eye Contact, Suicidal Thoughts Skin Exam: Warm, Dry, Intact COURSE, BEHAVIORAL HEALTH COMP - Course Vital Signs: Last Vital Signs Temp 98.1 F 03/29/19 22:10 Pulse 130 H 03/29/19 22:10 Resp 10 L 03/29/19 22:10 BP 167/91 H 03/29/19 22:10 Pulse Ox 96 03/29/19 22:10 Orders, Labs, Meds: Active Orders 24 hr Category Date Time Status Admission Status [Patient Status] [ADT] Routine ADT 03/29/19 23:34 Active Insert Gant Catheter [Insert Urinary Catheter] [OM.PC] Care 03/30/19 00:15 Ordered Q24H Urinary Catheter Assessment [RC] ASDIRECTED Care 03/30/19 00:06 Ordered SALICYLATE [REF] Stat Lab 03/29/19 22:39 Received Potassium Chloride Riders [KCL 20 MEQ in Water 50 ML] Med 03/30/19 00:01 Ordered 20 meq Premix Bag 1 bag IV ONETIME Medication Orders Potassium Chloride 20 meq/ (Premix) 50 mls @ 50 mls/hr IV ONETIME ONE Stop: 03/30/19 01:00 Laboratory Tests 03/29/19 03/29/19 03/29/19 Range/Units 22:39 22:39 23:24 WBC 18.9 H (4.0-10.0) x10^3/uL RBC 4.63 (4.00-5.50) x10^6/uL Hgb 13.8 D (12.0-16.0) g/dL Hct 40.8 (33.0-47.0) % MCV 88.1 D (78.0-93.0) fL MCH 29.8 (26.0-32.0) pg MCHC 33.8 (32.0-36.0) g/dL RDW Coeff of Felisha 14.6 (10.0-15.0) % Plt Count 231 D (130-400) x10^3/uL Neut % (Auto) 77.2 (50.0-80.0) % Lymph % (Auto) 13.3 L (25.0-50.0) % [place] % (Auto) 8.3 (2.0-11.0) % Eos % (Auto) 0.8 (0.0-4.0) % Baso % (Auto) 0.4 (0.2-1.2) % Sodium 136 (136-145) mmol/L Potassium 3.3 L (3.5-5.1) mmol/L Chloride 101 (98-107) mmol/L Carbon Dioxide 19 L (21-32) mmol/L Anion Gap 19.3 (10-20) mmol/L BUN 13 (7-18) mg/dL Creatinine 1.0 (0.55-1.02) mg/dL Est Cr Clr Drug Dosing TNP Estimated GFR (MDRD) 57 Glucose 185 H (74-106) mg/dL Calcium 8.7 (8.5-10.1) mg/dL Corrected Calcium 9.02 (8.5-10.1) mg/dL Total Bilirubin 0.4 (0.2-1.0) mg/dL AST 19 (15-37) U/L ALT 25 (14-59) U/L Alkaline Phosphatase 101 (46-116) U/L Total Protein 6.4 (6.4-8.2) g/dL Albumin 3.6 (3.4-5.0) g/dL Globulin 2.8 Albumin/Globulin Ratio 1.29 Urine Color Dark yellow H (YELLOW) Urine Appearance Slightly cloudy H (CLEAR) Urine pH 5.5 (5.0-8.0) Ur Specific [place] >=1.030 Urine Protein 30 H (NEGATIVE) mg/dL Urine Glucose (UA) Negative (NEGATIVE) mg/dL Urine Ketones 15 H (NEGATIVE) mg/dL Urine Occult Blood Negative (NEGATIVE) Urine Nitrite Negative (NEGATIVE) Urine Bilirubin Moderate H (NEGATIVE) Urine Urobilinogen 1.0 (0.2) EU/dL Ur Leukocyte Esterase Negative (NEGATIVE) Urine RBC 0-5 (NOT SEEN) /HPF Urine WBC 0-5 (NOT SEEN) /HPF Ur Squamous Epith Cells Few H (NEGATIVE) /HPF Calcium Oxalate Crystal Few H (NEGATIVE) /HPF Other Crystals Moderate Amorphous Sediment Moderate Urine Bacteria Not seen (NEGATIVE) /HPF Hyaline Casts Few H (NEGATIVE) /HPF Urine Opiates Screen (NEGATIVE) Ur Buprenorphine Scrn (NEGATIVE) Ur Oxycodone Screen (NEGATIVE) Ur EDDP (Meth Metab) (NEGATIVE) Urine Methadone Screen (NEGATIVE) Acetaminophen 0 L (10-30) ug/ml Ur Barbiturates Screen (NEGATIVE) Ur Tricyclics Screen (NEGATIVE) Ur Phencyclidine Scrn (NEGATIVE) Ur Amphetamine Screen (NEGATIVE) U Methamphetamines Scrn (NEGATIVE) Urine MDMA Screen (NEGATIVE) U Benzodiazepines Scrn (NEGATIVE) U Cocaine Metab Screen (NEGATIVE) U Marijuana (THC) Screen (NEGATIVE) Ethyl Alcohol < 3 (0-3) mg/dL 03/29/19 Range/Units 23:24 WBC (4.0-10.0) x10^3/uL RBC (4.00-5.50) x10^6/uL Hgb (12.0-16.0) g/dL Hct (33.0-47.0) % MCV (78.0-93.0) fL MCH (26.0-32.0) pg MCHC (32.0-36.0) g/dL RDW Coeff of Felisha (10.0-15.0) % Plt Count (130-400) x10^3/uL Neut % (Auto) (50.0-80.0) % Lymph % (Auto) (25.0-50.0) % [place] % (Auto) (2.0-11.0) % Eos % (Auto) (0.0-4.0) % Baso % (Auto) (0.2-1.2) % Sodium (136-145) mmol/L Potassium (3.5-5.1) mmol/L Chloride (98-107) mmol/L Carbon Dioxide (21-32) mmol/L Anion Gap (10-20) mmol/L BUN (7-18) mg/dL Creatinine (0.55-1.02) mg/dL Est Cr Clr Drug Dosing Estimated GFR (MDRD) Glucose (74-106) mg/dL Calcium (8.5-10.1) mg/dL Corrected Calcium (8.5-10.1) mg/dL Total Bilirubin (0.2-1.0) mg/dL AST (15-37) U/L ALT (14-59) U/L Alkaline Phosphatase (46-116) U/L Total Protein (6.4-8.2) g/dL Albumin (3.4-5.0) g/dL Globulin Albumin/Globulin Ratio Urine Color (YELLOW) Urine Appearance (CLEAR) Urine pH (5.0-8.0) Ur Specific [place] Urine Protein (NEGATIVE) mg/dL Urine Glucose (UA) (NEGATIVE) mg/dL Urine Ketones (NEGATIVE) mg/dL Urine Occult Blood (NEGATIVE) Urine Nitrite (NEGATIVE) Urine Bilirubin (NEGATIVE) Urine Urobilinogen (0.2) EU/dL Ur Leukocyte Esterase (NEGATIVE) Urine RBC (NOT SEEN) /HPF Urine WBC (NOT SEEN) /HPF Ur Squamous Epith Cells (NEGATIVE) /HPF Calcium Oxalate Crystal (NEGATIVE) /HPF Other Crystals Amorphous Sediment Urine Bacteria (NEGATIVE) /HPF Hyaline Casts (NEGATIVE) /HPF Urine Opiates Screen Negative (NEGATIVE) Ur Buprenorphine Scrn Negative (NEGATIVE) Ur Oxycodone Screen Negative (NEGATIVE) Ur EDDP (Meth Metab) Negative (NEGATIVE) Urine Methadone Screen Negative (NEGATIVE) Acetaminophen (10-30) ug/ml Ur Barbiturates Screen Negative (NEGATIVE) Ur Tricyclics Screen Negative (NEGATIVE) Ur Phencyclidine Scrn Negative (NEGATIVE) Ur Amphetamine Screen Negative (NEGATIVE) U Methamphetamines Scrn Negative (NEGATIVE) Urine MDMA Screen Negative (NEGATIVE) U Benzodiazepines Scrn Negative (NEGATIVE) U Cocaine Metab Screen Negative (NEGATIVE) U Marijuana (THC) Screen Negative (NEGATIVE) Ethyl Alcohol (0-3) mg/dL Medications Generic Name Dose Route Start Last Admin Trade Name Freq PRN Reason Stop Dose Admin Potassium Chloride 20 meq/ 50 mls @ 50 mls/hr 03/30/19 00:01 Premix IV 03/30/19 01:00 ONETIME ONE Discontinued Medications Generic Name Dose Route Start Last Admin Trade Name Freq PRN Reason Stop Dose Admin Haloperidol Lactate 5 mg 03/29/19 23:25 03/29/19 23:32 Haldol IV 03/29/19 23:26 5 mg ONETIME ONE Administration Levetiracetam 500 mg/ Sodium 105 mls @ 400 mls/hr 03/29/19 23:50 Chloride IV 03/30/19 00:04 ONETIME ONE Levetiracetam 1,500 mg/ Sodium 115 mls @ 400 mls/hr 03/29/19 23:54 Chloride IV 03/30/19 00:08 ONETIME ONE Lorazepam 2 mg 03/29/19 23:36 03/29/19 23:40 Ativan IVPUSH 03/29/19 23:37 2 mg STAT ONE Administration Lorazepam 2 mg 03/30/19 00:15 Ativan IVPUSH 03/30/19 00:16 STAT ONE Departure - Departure Time of Disposition: 00:09 Disposition: DC/Tfer to Acute Hospital 02 Condition: Fair Clinical Impression: Suicidal intent, Dehydration, Seizures - Discharge Information *PRESCRIPTION DRUG MONITORING PROGRAM REVIEWED*: Yes *COPY OF PRESCRIPTION DRUG MONITORING REPORT IN PATIENT [place]: Yes Forms: Interfacility Transfer [facility] ED Communication - ED Communication Date/Time Date: 03/30/19 Time Called: 00:24 - Discussed Case With (1) Discussed Case With (1): Admitting Provider (Dr. Maya. ED) - Conversation Summary Admitting Provider Agreed to Patient's Admission: Yes - Problem List Review Problem List Initiated/Reviewed/Updated: Yes - My Orders Last 24 Hours: My Active Orders 03/29/19 22:39 SALICYLATE [REF] Stat 03/29/19 23:34 Admission Status [Patient Status] [ADT] Routine 03/30/19 00:01 Potassium Chloride Riders [KCL 20 MEQ in Water 50 ML] 20 meq Premix Bag 1 bag IV ONETIME 03/30/19 00:06 Urinary Catheter Assessment [RC] ASDIRECTED 03/30/19 00:15 Insert Gant Catheter [Insert Urinary Catheter] [OM.PC] Q24H - Assessment/Plan Last 24 Hours: My Active Orders 03/29/19 22:39 SALICYLATE [REF] Stat 03/29/19 23:34 Admission Status [Patient Status] [ADT] Routine 03/30/19 00:01 Potassium Chloride Riders [KCL 20 MEQ in Water 50 ML] 20 meq Premix Bag 1 bag IV ONETIME 03/30/19 00:06 Urinary Catheter Assessment [RC] ASDIRECTED 03/30/19 00:15 Insert Gant Catheter [Insert Urinary Catheter] [OM.PC] Q24H Assessment:: Suicidal Ideation Acute Psychosis Possible Seizure Plan: Case discussed with Olu Maya, ER provider. Patient accepted in transfer. Patient signed out. All questions answered. Patient will be sent via ALS ground.
[2019-03-29 23:07] LABS: CHLORIDE,CL 101 mmol/L (98-107); SODIUM,NA 136 mmol/L (136-145)
[2019-03-29 23:08] LABS: ACETAMINOPHEN 0 ug/ml (10-30); ANION GAP 19.3 mmol/L (10-20)
[2019-03-29] MEDS ORDERED: Haloperidol Lactate 5 MG/ML SDV IV ONE (23:25)
[2019-03-29 23:30] LABS: BARBITURATE SCREEN,URINE NEGATIVE (NEGATIVE); BENZODIAZEPINES SCREEN,URINE NEGATIVE (NEGATIVE); EDDP,URINE SCREEN NEGATIVE (NEGATIVE); METHAMPHETAMINE SCREEN, URINE NEGATIVE (NEGATIVE); TCA SCREEN,URINE NEGATIVE (NEGATIVE); THC SCREEN,URINE 50 NG/ML NEGATIVE (NEGATIVE)
[2019-03-29] MEDS ORDERED: LORazepam 2 MG/ML SDV IVPUSH ONE (23:36)
[2019-03-29] MEDS ORDERED: levETIRAcetam 500 MG in Sodium Chloride 0.9% 100 ML IV ONE (23:50)
[2019-03-29] MEDS ORDERED: levETIRAcetam 1,500 MG in Sodium Chloride 0.9% 100 ML IV ONE (23:54)
[2019-03-30] MEDS ORDERED: Potassium Chloride Riders 20 MEQ in Premix Bag 1 BAG IV ONE (00:01)
[2019-03-30] MEDS ORDERED: LORazepam 2 MG/ML SDV IVPUSH ONE (00:15)
[2019-03-30] MEDS ORDERED: Sodium Chloride 0.9% 1,000 ML IV ONE (00:26)
[2019-03-30] MEDS ORDERED: NS + KCl 20mEq/L 1,000 ML IV SCH (00:30)
[2019-03-30 06:49] VITALS: PULSE 112
[2019-03-30 06:50] VITALS: BP 117/69
== END 2019-03-30 01:30 | disposition short-term general hospital (02) ==
LOC: VM.ED 22:10
DX: F32.9 Major depressive disorder, single episode, unspecified (principal); F23 Brief psychotic disorder; E86.0 Dehydration; R56.9 Unspecified convulsions; F41.9 Anxiety disorder, unspecified; Z91.013 Allergy to seafood; Z88.1 Allergy status to other antibiotic agents; Z79.899 Other long term (current) drug therapy
CPT/HCPCS: 36415; 51702; 80053; 80305; 81001; 85025; 93005; 94760; 96361; 96365; 96367; 96375; 99284; 99285; G0480; J1630; J1953; J2060; J3480; J7030; J7050

== ENCOUNTER 2019-07-23 10:17 | Emergency (ER) | payer MEDICAID ==
--- NOTE | 2019-07-23 10:43 | EDM.PDOC ---
ED HPI GENERAL MEDICAL PROBLEM - General Time Seen by Provider: 07/23/19 10:43 - History of Present Illness INITIAL COMMENTS - FREE TEXT/NARRATIVE: PT presents with c/o nausea, vomiting and just not feeling well. Pt is on day 3 of amoxicillin 500 mg tid for tooth abscess, is worried the infection may have spread. - Related Data Allergies Allergy/AdvReac Type Severity Reaction Status Date / Time shellfish derived Allergy Severe Anaphylactic Verified 07/23/19 10:51 Shock ciprofloxacin [From Cipro] AdvReac Vomiting Verified 07/23/19 10:51 Home Meds: Home Meds Naproxen 500 mg PO BID 06/03/18 [History] Escitalopram [Lexapro] 10 mg PO BEDTIME 05/31/19 [History] Methylphenidate HCl [Methylphenidate ER] 36 mg PO DAILY 05/31/19 [History] DULoxetine HCl [Cymbalta] 30 mg PO BEDTIME #30 capsule. 07/07/19 [Rx] Past Medical History - Past Health History Medical/Surgical History: Denies Medical/Surgical History [employer] History: Reports: Ectopic Musculoskeletal History: Reports: Back Pain, Chronic, Other (See Below) Other Musculoskeletal History: Back surgery X 5 Neurological History: Reports: Seizure Psychiatric History: Reports: Anxiety, Depression - Infectious Disease History Infectious Disease History: Reports: Chicken Pox - Past Surgical History Head Surgeries/Procedures: Reports: None HEENT Surgical History: Reports: Oral Surgery, Other (See Below) Other HEENT Surgeries/Procedures: jaw sx Cardiovascular Surgical History: Reports: None GI Surgical History: Reports: Appendectomy, Cholecystectomy Female Surgical History: Reports: Oophorectomy Neurological Surgical History: Reports: Discectomy, Laminectomy Other Neurological Surgeries/Procedures: Double laminectomy November 2017 Social & Family History - Family History Cardiac: Reports: [place] Neurological: Reports: Dementia, Neuropathy, Diabetic Psychiatric: Reports: ADHD Endocrine/Metabolic: Reports: Diabetes, type II Hematologic: Reports: Anemia Oncologic: Reports: Skin - Caffeine Use Caffeine Use: Reports: None ED ROS GENERAL - Review of Systems Review Of Systems: See Below Constitutional: Reports: Malaise HEENT: Reports: No Symptoms Respiratory: Reports: No Symptoms Cardiovascular: Reports: No Symptoms Endocrine: Reports: No Symptoms GI/Abdominal: Reports: Nausea, Vomiting : Reports: No Symptoms Musculoskeletal: Reports: No Symptoms Skin: Reports: No Symptoms ED EXAM, GENERAL - Physical Exam Exam: See Below Exam Limited By: No Limitations General Appearance: Alert, WD/WN, No Apparent Distress Eye Exam: Bilateral Eye: PERRL Ears: Normal External Exam, Normal Canal, Hearing Grossly Normal, Normal TMs Nose: Normal Inspection, Normal Mucosa, No Blood Head: Atraumatic, Normocephalic Neck: Normal Inspection, Supple, Non-Tender, Full Range of Motion Respiratory/Chest: No Respiratory Distress, Lungs Clear, Normal Breath Sounds, No Accessory Muscle Use, Chest Non-Tender Cardiovascular: Normal Peripheral Pulses, Regular Rate, Rhythm, No Edema, No Gallop, No JVD, No Murmur, No Rub GI/Abdominal: Normal Bowel Sounds, Soft, Non-Tender, No Distention, No Abnormal Bruit, No Mass, Other (N/V) Extremities: Normal Inspection, Normal Range of Motion, Non-Tender, Normal Capillary Refill, No Pedal Edema Neurological: Alert, Oriented Psychiatric: Normal Affect, Normal Mood Skin Exam: Warm, Dry, Intact, Normal Color, No Rash Course - Vital Signs Last Recorded V/S: Last Vital Signs Temp 36.3 C 07/23/19 10:30 Pulse 112 H 07/23/19 10:30 Resp 18 07/23/19 10:30 BP 142/96 H 07/23/19 10:30 Pulse Ox 94 L 07/23/19 10:30 - Orders/Labs/Meds Orders: Active Orders 24 hr Category Date Time Status Sodium Chloride 0.9% [Saline Flush] Med 07/23/19 10:48 Active 10 ml FLUSH ASDIRECTED PRN Peripheral IV Insertion Adult [OM.PC] Routine Oth 07/23/19 10:48 Ordered Medication Orders Sodium Chloride (Saline Flush) 10 ml FLUSH ASDIRECTED PRN PRN Reason: Keep Vein Open Meds: Medications Generic Name Dose Route Start Last Admin Trade Name Freq PRN Reason Stop Dose Admin Sodium Chloride 10 ml 07/23/19 10:48 Saline Flush FLUSH ASDIRECTED PRN Keep Vein Open Discontinued Medications Generic Name Dose Route Start Last Admin Trade Name Freq PRN Reason Stop Dose Admin Lactated Ringer's 1,000 mls @ 999 drops/min 07/23/19 10:48 07/23/19 10:58 Ringers, Lactated IV 07/23/19 11:03 999 drops/min ONETIME ONE Administration Ondansetron HCl 4 mg 07/23/19 10:48 07/23/19 11:00 Zofran IVPUSH 07/23/19 10:49 4 mg ONETIME ONE Administration Departure - Departure Time of Disposition: 12:04 Disposition: Home, Self-Care 01 Condition: Good Clinical Impression: Tooth abscess, Nausea & vomiting - Discharge Information Instructions: Nausea and Vomiting, Adult Referrals: Heidi Salas PA-C [Primary Care Provider] - - My Orders Last 24 Hours: My Active Orders 07/23/19 10:48 Sodium Chloride 0.9% [Saline Flush] 10 ml FLUSH ASDIRECTED PRN Peripheral IV Insertion Adult [OM.PC] Routine - Assessment/Plan Last 24 Hours: My Active Orders 07/23/19 10:48 Sodium Chloride 0.9% [Saline Flush] 10 ml FLUSH ASDIRECTED PRN Peripheral IV Insertion Adult [OM.PC] Routine
[2019-07-23] MEDS ORDERED: Lactated Ringers 1,000 ML IV ONE (10:48)
[2019-07-23] MEDS ORDERED: Sodium Chloride 0.9% 10 ML Syringe FLUSH PRN (10:48)
[2019-07-23] MEDS ORDERED: Ondansetron 4 MG/2 ML SDV IVPUSH ONE (10:48)
[2019-07-23 10:50] VITALS: BP 142/96; PULSE 112
== END 2019-07-23 12:20 | disposition home or self-care (01) ==
LOC: VM.ED 10:17
DX: R11.2 Nausea with vomiting, unspecified (principal); K04.7 Periapical abscess without sinus; F41.9 Anxiety disorder, unspecified; F32.9 Major depressive disorder, single episode, unspecified; Z91.013 Allergy to seafood; Z88.1 Allergy status to other antibiotic agents; Z79.899 Other long term (current) drug therapy
CPT/HCPCS: 96361; 96374; 99283-25; J2405; J7120

== ENCOUNTER 2019-11-14 11:11 | Emergency (ER) | payer MEDICAID ==
[2019-11-14] MEDS ORDERED: cefTRIAXone 1 GM Vial IM ONE (11:28)
[2019-11-14 11:30] VITALS: BP 165/89; PULSE 77
--- NOTE | 2019-11-14 11:33 | EDM.PDOC ---
ED HPI GENERAL MEDICAL PROBLEM - General Chief Complaint: ENT Problem Stated Complaint: TOOTH ABCESS Time Seen by Provider: 11/14/19 11:15 Source of Information: Reports: Patient History Limitations: Reports: No Limitations - History of Present Illness INITIAL COMMENTS - FREE TEXT/NARRATIVE: Patient presents today with concerns of a tooth abscess. Started having tooth discomfort on and has progressively gotten worse. Has 2 molars, one upper and one lower, that had crowns but have now broken off. Is having pain to her lower jaw line now and noted mild swelling this am. She denies any fever. Does have pain in her left ear but believes it is radiation from the tooth. No sinus congestion, cough or sore throat. Admits that since starting having surgeries on her back and dealing with limitations with that due to pain , has been unable to work and lost her dental insurance. Onset: Gradual Duration: Day(s): Location: Reports: Head Quality: Reports: Throbbing Severity: Moderate Improves with: Reports: Medication Associated Symptoms: Reports: No Other Symptoms - Related Data Allergies Allergy/AdvReac Type Severity Reaction Status Date / Time shellfish derived Allergy Severe Anaphylactic Verified 10/08/19 10:25 Shock ciprofloxacin [From Cipro] AdvReac Vomiting Verified 10/08/19 10:25 Home Meds: Home Meds Naproxen 500 mg PO BID 06/03/18 [History] Escitalopram [Lexapro] 10 mg PO BEDTIME 05/31/19 [History] Methylphenidate HCl [Methylphenidate ER] 36 mg PO DAILY 05/31/19 [History] traMADol [Ultram] 50 mg PO TID PRN 30 Days #90 tablet 10/22/19 [Rx] Past Medical History - Past Health History Medical/Surgical History: Denies Medical/Surgical History [employer] History: Reports: Ectopic Musculoskeletal History: Reports: Back Pain, Chronic, Other (See Below) Other Musculoskeletal History: Back surgery X 5 Neurological History: Reports: Seizure Psychiatric History: Reports: Anxiety, Depression - Infectious Disease History Infectious Disease History: Reports: Chicken Pox - Past Surgical History Head Surgeries/Procedures: Reports: None HEENT Surgical History: Reports: Oral Surgery, Other (See Below) Other HEENT Surgeries/Procedures: jaw sx Cardiovascular Surgical History: Reports: None GI Surgical History: Reports: Appendectomy, Cholecystectomy Female Surgical History: Reports: Oophorectomy Neurological Surgical History: Reports: Discectomy, Laminectomy Other Neurological Surgeries/Procedures: Double laminectomy November 2017 Social & Family History - Family History Cardiac: Reports: [place] Neurological: Reports: Dementia, Neuropathy, Diabetic Psychiatric: Reports: ADHD Endocrine/Metabolic: Reports: Diabetes, type II Hematologic: Reports: Anemia Oncologic: Reports: Skin - Caffeine Use Caffeine Use: Reports: Soda ED ROS ENT - Review of Systems Review Of Systems: See Below Constitutional: Denies: Fever, Chills, Malaise, Weakness, Decreased Appetite HEENT: Reports: Dental Pain, Ear Pain. Denies: Throat Pain Respiratory: Reports: No Symptoms Cardiovascular: Reports: No Symptoms GI/Abdominal: Reports: No Symptoms ED EXAM, ENT - Physical Exam Exam: See Below Exam Limited By: No Limitations General Appearance: Alert, WD/WN, No Apparent Distress Ears: Normal External Exam, Normal TMs Nose: Normal Inspection, Normal Mucousa, No Blood Mouth/Throat: Dental Abcess, Dental Pain, Dental Tenderness, Other (obvious dental caries and broken off teeth to left upper and lower molars, mild swelling to left lower jaw) Head: Normocephalic Respiratory/Chest: No Respiratory Distress, Lungs Clear, Normal Breath Sounds Cardiovascular: Regular Rate, Rhythm Neurological: Alert, Oriented Skin: Warm, Dry Departure - Departure Time of Disposition: 11:35 Disposition: Home, Self-Care 01 Condition: Good Clinical Impression: Dental caries, Fracture of tooth, Tooth abscess - Discharge Information *PRESCRIPTION DRUG MONITORING PROGRAM REVIEWED*: No *COPY OF PRESCRIPTION DRUG MONITORING REPORT IN PATIENT [place]: No Instructions: Dental Abscess Forms: ED Department Discharge Additional Instructions: 1. Soft foods 2. Tylenol or ibuprofen for discomfort. May fill Naproxen tomorrow and take twice a day as needed for the pain 3. Augmentin 875 mg twice a day for 10 days 4. Follow up with dentist in [place] (information given on dental clinic)
== END 2019-11-14 12:07 | disposition home or self-care (01) ==
LOC: VM.ED 11:11
DX: K04.7 Periapical abscess without sinus (principal); K03.81 Cracked tooth; K02.9 Dental caries, unspecified; F41.9 Anxiety disorder, unspecified; F32.9 Major depressive disorder, single episode, unspecified; Z91.013 Allergy to seafood; Z88.1 Allergy status to other antibiotic agents; Z79.899 Other long term (current) drug therapy
CPT/HCPCS: 96372; 99283; J0696

== ENCOUNTER 2021-10-18 10:14 | Day surgery (SDC) | payer MEDICARE, MEDICAID ==
[~2021-10-18 10:14] MED LIST: Lactated Ringers 1,000 ML IV SCH
[2021-10-18] MEDS ORDERED: Propofol 200 MG/20 ML SDV ONE (11:07)
[2021-10-18] MEDS ORDERED: fentaNYL 100 MCG/2 ML SDV ONE (11:07)
[2021-10-18 12:56] VITALS: BP 106/59; PULSE 59
== END 2021-10-18 14:00 | disposition home or self-care (01) ==
LOC: VM.SDS 10:14
PROVIDERS: ATTEND Family Medicine
DX: K31.89 Other diseases of stomach and duodenum (principal); K29.50 Unspecified chronic gastritis without bleeding; K44.9 Diaphragmatic hernia without obstruction or gangrene; K25.9 Gastric ulcer, unspecified as acute or chronic, without hemorrhage or perforation; F41.1 Generalized anxiety disorder; F32.A Depression, unspecified; G89.29 Other chronic pain; Z98.890 Other specified postprocedural states; Z79.899 Other long term (current) drug therapy; E05.90 Thyrotoxicosis, unspecified without thyrotoxic crisis or storm; Z90.49 Acquired absence of other specified parts of digestive tract; Z87.891 Personal history of nicotine dependence
CPT/HCPCS: 00731; 88305; J2704; J3010; J7120

== ENCOUNTER 2024-01-28 08:16 | Emergency (ER) | payer MEDICARE, MEDICAID ==
[2024-01-28 10:25] VITALS: BP 167/101; PULSE 68
== END 2024-01-28 09:52 | disposition home or self-care (01) ==
LOC: VM.ED 08:16
DX: S62.175A Nondisplaced fracture of trapezium [larger multangular], left wrist, initial encounter for closed fracture (principal); Z79.899 Other long term (current) drug therapy; Z88.8 Allergy status to other drugs, medicaments and biological substances; Z88.1 Allergy status to other antibiotic agents; Z91.013 Allergy to seafood; W19.XXXA Unspecified fall, initial encounter
CPT/HCPCS: 73110-LT; 99283